=== PATIENT | male | born 1965 | race Two or more races ===

== ENCOUNTER → 2024-02-29 | Outpatient (CLI) | payer MEDICAID, SELFPAY ==
--- NOTE | 2024-02-29 16:05 | XR_ITS ---
Examination: Bilateral wrists 6 views TECHNIQUE: AP oblique lateral each wrist total 6 views Exam date and time: February 29, 2024 1618 hours INDICATIONS: Bilateral wrist pain several years, carpal tunnel surgery left wrist 2021 right wrist 2015 FINDINGS: Moderate osteopenia No fracture or dislocation involving either wrist Moderate osteoarthritis right first carpometacarpal joint Mild osteoarthritis left first carpometacarpal joint No erosive arthritis No avascular necrosis Moderate narrowing left navicular trapezium joint IMPRESSION: Moderate osteoarthritis right first carpometacarpal joint Mild osteoarthritis left first carpometacarpal joint Moderate narrowing left navicular trapezium joint
== END | disposition home or self-care (01) ==
LOC: CDIM 15:47
PROVIDERS: PCP Physician Assistant
DX: M18.0 Bilateral primary osteoarthritis of first carpometacarpal joints (principal); M25.832 Other specified joint disorders, left wrist
CPT/HCPCS: 73110

== ENCOUNTER 2024-10-31 08:00 | Outpatient (RCR) | payer MEDICAID, SELFPAY ==
--- NOTE | 2024-10-18 08:33 | PT.OIERPT ---
PT OP Initial Eval Patient Information Outpatient Physical Therapy Treatment Date: 10/18/24 Visit Reasons: right finger surgery Medical Diagnosis: M79.641; M79.644 Treatment Dx #1: Right Hand Weakness Treatment Dx #2: Right Digits Mobility Deficits Start of Care: 10/18/24 Date of Onset: 08/25/24 Smoking Status Smoking Status: Never smoker Initial Assessment Subjective: Pt is a 59 y/o male right s/p trigger finger (2nd-4th) release 08/25/24. 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 Pt has limitation with gripping, lifting, chores, self care, cooking, cleaning, performing chores, and and recreational activities. Objective: Right Wrist AROM Flexion: 10 deg Extension: 60 deg Pronation/Supination: WNL Radial/Ulnar Deviation: WNL Right Wrist MMTs: grossly 3/5 Right 2nd-4th Digit AROM: WFL Facility Service Associate Strength L: 118 lbs R: 45 lbs Assessment: Pt demonstrate right hand mobility and strength deficits s/p trigger finger release leading to difficulty with ADLs. Pt will benefit from physical therapy to increase ROM, strength, and work on hand dexterity Short Term and Care Home Goals 1) Increase right wrist AROM WNL in 8 wks to be able to perform chores 2) Increase right back up worker strength to 100 lbs in 8 wks to be able to return back to work 3) Decrease wrist pain to 2/10 in 8 wks to be able to perform recreational activities 4) Increase right wrist MMTs grossly to 4/5 in 8 wks to be able to perform lifting activities 5) Indep with HEP Treatment Plan 1) Manual Therapy 2) Therapeutic Activities 3) Therapeutic Exercises 4) Modalities (ice, heat) Frequency and Duration: 2 x wk for 8 wks Certification Dates: 10/18/24 to 01/17/25 Procedure Charges OP PT Eval Mod Complex 30 minutes: Yes
--- NOTE | 2024-10-24 09:57 | PT.ODAYNRPT ---
PT Outpatient Daily Note OP Daily Note Outpatient Physical Therapy Treatment Date: 10/24/24 Visit Reasons: right finger surgery Subjective: Pt's hand is feeling better, however, still notice weakness. Pt was up late yesterday finishing up a car. Objective: Please see flow chart for list of ther ex performed Assessment: notice thick scar tissue adhesion at the surgical site near 2nd digit during STM. Pt tolerate all exercises today with minimal pain Plan: Continue with PT Length of Time (minutes) of Treatment: 30 Minutes Procedure Charges Therapeutic Exercise 30 minutes: Yes
--- NOTE | 2024-10-31 08:42 | PT.ODAYNRPT ---
PT Outpatient Daily Note OP Daily Note Outpatient Physical Therapy Treatment Date: 10/31/24 Visit Reasons: right finger surgery Subjective: Pt reports gripping ROM is slowly improving but since he has been working his hands have been sore and hurting. Objective: Please see flow sheet for ther ex list. Assessment: Performed PROM and scar tissue mobs, pt tolerated with minimal pain. Plan: Continue with POC. Length of Time (minutes) of Treatment: 30 Minutes Procedure Charges Therapeutic Exercise 30 minutes: Yes
--- NOTE | 2024-11-29 14:27 | PT.ODS1RPT ---
PT OP Progress/Discharge Note Date of Service: 11/29/24 Progress Note/DC Note Progress Note/Discharge Note: DC Note Patient Information Visit Reasons: right finger surgery Service Discharge Date: 11/29/24 Status Assessment: Pt has been seen for 3 visits (eval + 2 visits). Pt last treated on 10/31/24. Pt no showed 11/07 and 11/10 appt and has been contact without success. At this time Pt will be d/c from care due to non-compliance per attendance policy. Pt did not meet set goals in therapy; thank you for your referrals.
== END 2024-11-14 23:59 | disposition home or self-care (01) ==
LOC: CPTX 08:00
PROVIDERS: PCP Nurse Practitioner Gerontology; Referring Provider Nurse Practitioner Gerontology; Visit Provider Nurse Practitioner Gerontology
DX: M79.641 Pain in right hand (principal); M79.644 Pain in right finger(s); R53.1 Weakness; Z98.890 Other specified postprocedural states
CPT/HCPCS: 97110; 97162

== ENCOUNTER 2025-01-29 17:52 | Emergency (ER) | payer MEDICAID, SELFPAY ==
[2025-01-29 18:24] VITALS: BP 134/81; PULSE 80; RESP 18; TEMP 36.8; O2SAT 97; BMI 26.9
--- NOTE | 2025-01-29 18:24 | PD.EDBACK ---
ED Back Injury Pain RME/HPI General Chief Complaint: Back Pain/Injury Stated Complaint: MADDY. 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 Denies any fever, nausea, vomiting, diarrhea, dysuria, chest pain, shortness of breath. Denies any trauma, saddle anesthesias, numbness, tingling, weakness. Related Data Previous Rx's ?Medication ?Instructions ?Recorded diphenhydramine HCl 25 mg capsule 25 mg PO Q8H PRN itching #14 caps 03/03/19 (Benadryl) methylprednisolone 4 mg tablets in See Rx Instructions .Route 03/03/19 a dose pack (Medrol (Lopez)) .COMPLEX #21 tabs tramadol 50 mg tablet (Ultram) 50 mg PO BID PRN pain #14 tabs 11/28/19 meloxicam 7.5 mg tablet 7.5 mg PO QDAY #14 tabs 08/12/21 diphenhydramine HCl 25 mg capsule 50 mg (2 x 25 mg) PO TID PRN 10/24/21 (Allergy (diphenhydramine)) allergic reaction #20 caps epinephrine 0.3 mg/0.3 mL 0.3 ml subcut .once PRN 10/24/21 injection, auto-injector hypersensitivity reaction #2 ea famotidine 20 mg tablet 20 mg PO BID #14 tabs 09/07/22 sucralfate 100 mg/mL oral 10 ml PO BID #400 mL 09/07/22 suspension (Carafate) hyoscyamine sulfate 0.125 mg tablet 0.125 mg PO QDAY #30 tabs 09/28/22 azithromycin 250 mg tablet See Rx Instructions PO .COMPLEX #6 09/21/23 (Zithromax Z-Lopez) tabs cyclobenzaprine 10 mg tablet 10 mg PO TID #10 tabs 01/29/25 naproxen 500 mg tablet 500 mg PO BID PRN pain #14 tabs 01/29/25 Allergies Allergy/AdvReac Type Severity Reaction Status Date / Time codeine Allergy Severe RASH Verified 01/29/25 17:55 Penicillins Allergy Severe Hives Verified 01/29/25 17:55 Review of Systems Review of Systems Systems Reviewed: All systems reviewed, normal except as documented ED Exam Narrative Physical exam: Constitutional: Patient alert and oriented. Well appearing. No acute distress. Not toxic appearing. Head: Normocephalic, atraumatic. Eyes: Periorbital regions bilaterally normal to inspection. Conjunctiva clear bilaterally. Sclera anicteric bilaterally. Pupils equal, round, reactive to light bilaterally. Extraocular movements intact bilaterally. Mouth/Throat: Mucous membranes moist. No stridor or muffled voice. No trismus. Handling secretions without difficulty. Airway widely patent. Neck: Supple. Trachea midline. No JVD. No nuchal rigidity. Normal range of motion. Respiratory: Normal effort. No accessory muscle use or respiratory distress. Lungs clear to auscultation bilaterally without rhonchi, wheezes, or crackles. Cardiovascular: RRR. Normal S1/S2. No murmurs or rubs. Radial pulses intact bilaterally. Abdomen: Soft. Non-distended. Non-tender throughout. No pulsatile mass. No guarding or rebound. Negative Dickerson?s sign. Negative McBurney?s point tenderness. Negative Rovsing?s. Back: No midline tenderness or step-offs. No CVA tenderness to palpation bilaterally. Positive paralumbar tenderness to palpation bilaterally. Upper Extremities: No gross deformities. Lower Extremities: No gross deformities. No edema or calf tenderness. Deep tendon reflexes 2+ symmetric for lower extremities bilaterally. Neuro: Speech normal. No gross motor or sensory deficits to upper or lower extremities bilaterally. GCS 15. CN II?XII grossly intact. Skin: Warm, dry, normal color. Psych: Normal affect. Cooperative. Normal insight. Course Quality Measures none Orders Category Date Time Status Aspiration precautions NOW Care 01/29/25 18:25 Active NPO NOW Care 01/29/25 18:25 Active Diet NPO (NOW) Diet 01/29/25 18:[address] abdomen pelvis wo con Stat Exams 01/29/25 18:25 Completed CBC Stat Lab 01/29/25 19:10 Completed CMP [Comprehensive Metabolic Panel] Stat Lab 01/29/25 19:10 Completed Lipase Stat Lab 01/29/25 19:10 Completed Urinalysis Stat Lab 01/29/25 19:10 Completed Ketorolac Inj [Toradol Inj] Med 01/29/25 18:25 Discontinued 30 mg IM X1 ONE Vital Signs Vital signs: Vital Signs Temperature 98.3 F 01/29/25 18:24 Pulse Rate 80 01/29/25 18:24 Respiratory Rate 18 01/29/25 18:24 Blood Pressure 134/81 H 01/29/25 18:24 Pulse Oximetry (%) 97 01/29/25 18:24 Oxygen Delivery Method Room Air 01/29/25 18:24 Back Pain / Injury MDM Narrative MDM Narrative:: MDM: This patient presents with acute low back pain most consistent with musculoskeletal strain or spasm. Pain is localized without radiation, paresthesia, or weakness. No bowel or bladder incontinence. No acute neurologic deficits. Doubt cauda equina syndrome, spinal cord compression, infection, trauma, malignancy, dissection, or nephrolithiasis based on history, exam, and absence of red flag symptoms. Doubt renal colic, pyelonephritis, or obstructive uropathy given clinical eval which is not suggestive of this Advanced imaging MRI considered but not indicated given absence of neurologic deficits or high-risk features. Plan: Symptomatic management with analgesics, stretching, and activity as tolerated. Discussed medication precautions and return precautions for worsening pain, fever, new weakness, numbness, or bowel/bladder changes. Advised follow-up with PCP within 1?2 days for reassessment. At the time of reassessment prior to discharge, the patient remains alert and oriented ?3 with GCS 15. Vitals are normal, pain is controlled, and the patient is tolerating oral intake without nausea or vomiting. The patient is agreeable to discharge and verbalizes understanding of the diagnosis, studies, treatment plan, medications (including side effects/precautions), and strict ER return precautions as discussed in the ED. All concerns were addressed, and the patient is comfortable with the plan. Patient data External records reviewed:: [facility] previous records Clinical information provided by:: patient Social determinants that could affect healthcare access:: none Patient has the following chronic illnesses:: As noted How is presenting disease/condition affected by chronic disease/condition?: uneffected by Evaluation data The following diagnostics were reviewed and interpreted by me:: lab results and radiology exam(s) Lab and/or radiology exams considered but not ordered:: Additional Labs and radiology considered, but not ordered as they were not clinically indicated at this time. Interpretation Summary: Labs are notable for corrected calcium minimally elevated 10.2, alk phos minimally elevated 142 however remainder of lab work without severe metabolic or electrolyte abnormality CT scan without acute intra-abdominal or pelvic abnormality aside from a nonobstructing 1 mm right renal calculi as well as osteopenia Medications / Prescriptions Medications or Prescriptions considered but not ordered:: I ordered medications based on the patient?s clinical needs and assessment, as documented in the chart. For medications not prescribed, they were not indicated for the patient's current condition, and I determined they were unnecessary at this time to avoid potential risks or complications. Medication administrations:: Medication Administration History Discontinued Medications Ketorolac Tromethamine (Ketorolac Inj 30 Mg/Ml Vial) 30 mg IM X1 ONE Stop: 01/29/25 18:26 Last Admin: 01/29/25 20:07 Dose: 30 mg Documented By: TIA As noted Consultations Consultation(s) initiated? (list below): No Diagnosis Differential diagnosis back pain/injury: strain of lumbar region, thoracic back pain and AAA Most likely diagnosis given after review of the tests above:: Lumbar strain Admission Indicated Admission indicated?: not indicated Admission Request Was there a request for admission?: No Disposition Plan Disposition Plan: Discharge Discharge Attestation Discharge Attestation: The patient and all family members were given an opportunity to ask questions and understood the discharge instructions. Discharge instructions specifically effects, indications for sooner follow up or return to the emergency department, and the expected course of current diagnosis. Patient condition: Stable Discharge Plan Plan Patient Disposition: HOME (Self Care) Patient condition on transfer: Stable Prescriptions/Referrals Prescriptions/Med Rec: New cyclobenzaprine 10 mg tablet 10 mg PO TID Qty: 10 0RF naproxen 500 mg tablet 500 mg PO BID PRN (Reason: pain) Qty: 14 0RF Rx Instructions: take wtih food and 8 oz of water No Action methylprednisolone [Medrol (Lopez)] 4 mg tablets,dose pack See Rx Instructions .ROUTE .COMPLEX Qty: 21 0RF Rx Instructions: Use as directed diphenhydramine HCl [Benadryl] 25 mg capsule 25 mg PO Q8H PRN (Reason: itching) Qty: 14 0RF tramadol [Ultram] 50 mg tablet 50 mg PO BID PRN (Reason: pain) Qty: 14 0RF meloxicam 7.5 mg tablet 7.5 mg PO QDAY Qty: 14 0RF diphenhydramine HCl [Allergy (diphenhydramine)] 25 mg capsule 50 mg PO TID PRN (Reason: allergic reaction) Qty: 20 0RF epinephrine 0.3 mg/0.3 mL auto-injector 0.3 ml subcut .once PRN (Reason: hypersensitivity reaction) Qty: 2 0RF sucralfate [Carafate] 100 mg/mL suspension 10 ml PO BID Qty: 400 0RF famotidine 20 mg tablet 20 mg PO BID Qty: 14 0RF azithromycin [Zithromax Z-Lopez] 250 mg tablet See Rx Instructions .ROUTE .COMPLEX Qty: 6 0RF Rx Instructions: For 250 mg dose pack: take 500 mg today (day 1), then 250 mg for 4 days (days 2-5) hyoscyamine sulfate 0.125 mg tablet 0.125 mg PO QDAY Qty: 30 1RF Referrals: No Primary/Family,Physician [Primary Care Provider] - In 1 week Problem List Clinical Impression: Back pain Patient/Caregiver Discharge Instructions Education Materials: ED Back Pain (Acute or Chronic) Additional Instructions: Follow up with your primary medical doctor within 24 hours. Return to the Emergency Room immediately for any new, worsening, continuing symptoms or any concerns at all. Return to the Emergency Room within 24 hours if you are unable to follow up with your primary medical doctor within 24 hours. Print Language: Emirati Stand Alone Forms: [facility]irella Award Info., Patient Portal Info Letter PA/SPEECH LANGUAGE PATHOLOGY ASSISTANT Supervising Physician PA/SPEECH LANGUAGE PATHOLOGY ASSISTANT Supervising Physician: Dr. Chaudhary
--- NOTE | 2025-01-29 18:25 | XR_ITS ---
Examination: CT abdomen and pelvis without contrast. Coronal 3-D reconstructions. Sagittal 2-D reconstructions. Date and time of exam: January 29, 2025, 2002 hours INDICATIONS: Bilateral flank pain lower back pain beginning 3 days ago, right renal calculus on CT study September 28, 2022 CTDI: vol (mGy): 6.54 DLP: (mGycm): 406 Technique: Axial images of the abdomen have been obtained, 3 mm slice thickness Intravenous contrast material has not been administered. Low dose protocols were performed. One or more of the following dose reduction techniques were used; automated exposure control, adjustment of the mA and/or KV according to patient size, use of iterative reconstruction technique. Findings: No focal liver or splenic lesions No gallstones No pancreatic or adrenal mass 1 mm nonobstructing right renal calculus 10 mm right renal cyst with calcification in the wall of the cyst No hydronephrosis or ureteral calculi No pericecal inflammatory change. Aorta is not enlarged. No diverticulitis or bowel obstruction No bladder mass or bladder calculi Normal seminal vesicles No prostatomegaly Moderate osteopenia IMPRESSION: 1 mm nonobstructing right renal calculus, no hydronephrosis or ureteral calculi No bladder mass or bladder calculi
[2025-01-29 19:24] LABS: Collection Type, Urine Voided; Squamous Epithelial Cell,Urine 0 /hpf (0-5)
[2025-01-29 19:28] LABS: Basophils # (Auto) 0.0 Thou/mm3 (0.0-0.2); Basophils % (Auto) 0 % (0-2.5); Eosinophils # (Auto) 0.2 Thou/mm3 (0.0-0.5); Eosinophils % (Auto) 3 % (0-10); Hematocrit 45.2 % (41.0-53.0); Hemoglobin 15.9 g/dL (13.5-16.0); Immature Granulocytes Auto 0.01 Thou/mm3 (0.00-0.00); Lymphocytes # (Auto) 2.3 Thou/mm3 (1.0-4.8); Lymphocytes % (Auto) 34 % (10-50); Mean Corpuscular HGB Conc 35.2 g/dl (31.0-37.0); Mean Corpuscular Hemoglobin 32.3 pg (25.0-35.0); Mean Corpuscular Volume 92 fL (80-100); Monocytes # (Auto) 0.7 Thou/mm3 (0.0-0.8); Monocytes % (Auto) 10 % (0-12); Neutrophils # (Auto) 3.6 Thou/mm3 (1.8-7.7); Neutrophils % (Auto) 53 % (37-80); Nucleated Red Blood Cell # 0.00 Thou/mm3 (0.00-0.00); Nucleated Red Blood Cell % 0 /100 WBC (0); Platelet Count 179 Thou/mm3 (140-440); RDW Standard Deviation 41.3 fL (35.1-43.9); Red Blood Count 4.93 Miln/mm3 (4.50-5.90); White Blood Count 6.8 Thou/mm3 (3.8-10.6)
[2025-01-29 19:30] LABS: Bilirubin,Urine Negative (Negative); Blood,Urine Negative (Negative); Clarity,Urine Clear (Clear/Hazy); Color,Urine Lt-Yellow (Lt Yel-Yel); Glucose, Urine Negative (Negative); Ketones,Urine Negative (Negative); Leukocyte Esterase,Urine Negative (Negative); Nitrite,Urine Negative (Negative); PH,Urine 5.5 (5.0-7.0); Protein,Urine Negative (Neg - Trace); RBC,Urine 1 /hpf (0-3); Specific Gravity,Urine 1.026 (1.001-1.035); Urobilinogen,Urine Negative mg/dL (0.0-1.0); WBC,Urine < 1 /hpf (0-5)
[2025-01-29 19:48] LABS: Alanine Aminotransferase 15 U/L (10-49); Albumin, Serum 4.7 gm/dL (3.4-4.8); Albumin/Globulin Ratio 1.3 (1.2-2.2); Alkaline Phosphatase 142 U/L (46-116); Anion Gap 7 (7-16); Aspartate Amino Transferase 20 U/L (0-34); BUN/Creatinine Ratio 17 Ratio (12-20); Bilirubin,Total 0.3 mg/dL (0.3-1.2); Blood Urea Nitrogen 19 mg/dL (9-23); Calcium 10.2 mg/dL (8.3-10.6); Calcium (Corrected) 10.2 mg/dL (8.5-10.1); Carbon Dioxide 28.3 mMol/L (20.0-31.0); Chloride 104 mMol/L (98-107); Creatinine (Component) 1.1 mg/dL (0.6-1.3); Estimated Creatinine Clearance 63.6 mL/min (>60); Globulin 3.6 gm/dL (2.3-3.5); Glucose 82 mg/dL (74-106); Lipase 38 U/L (12-53); Osmolality,Calculated 278 (275-295); Potassium 4.5 mMol/L (3.4-5.1); Sodium 139 mMol/L (136-145); Total Protein 8.3 gm/dL (5.7-8.2); eGFR > 60 See Note
[2025-01-29] MEDS: KETOROLAC INJ 30 MG/ML VIAL IM (20:07)
[2025-01-29 20:51] VITALS: BP 139/90; PULSE 73; RESP 19; TEMP 36.8; O2SAT 96
[2025-01-29 21:48] VITALS: RESP 18
== END 2025-01-29 21:48 | disposition home or self-care (01) ==
PROVIDERS: Physician Assistant; Emergency Provider Emergency Medicine
DX: N20.0 Calculus of kidney (principal); M85.80 Other specified disorders of bone density and structure, unspecified site; R74.8 Abnormal levels of other serum enzymes
CPT/HCPCS: 36415; 74176; 80053; 81001; 83690; 85025; 96372; 99283; J1885